=== PATIENT | female | born 1945 | race Caucasian/White ===

== ENCOUNTER → 2016-02-22 | Outpatient (REF) | payer OTHER ==
[~2016-02-22] MED LIST: /WARF25TA OR; ACET65TA OR; ALLEVIATE PO; AMIT10TA2 OR; AMIT25TA2 OR; CINAMMON PO; CO Q 10 PO; COUM2.5T11 PO; GREEN TEA EXTRACT PO; METOPROLOL PO; MULTCAP PO; MULTIVIT PO; NASA0.057; OCEA0.654; OMEGA Q PLUS PO; PERC7.5T8 OR; PERCOCET PO; PRAV40TA OR; PRAVASTATIN PO; TOPR25TA OR; TRAM50TA2 OR; TRIGOSAMINE PO; TYLE167L PO; ULTR50TA PO; VITACAP31 PO; VITAL PO; VITAMIN B COMPLE1 OR
[2016-02-22 14:42] LABS: ALBUMIN 3.7 GM/DL (3.2-5.2); ALBUMIN/GLOBULIN RATIO 1.12 (1.00-1.93); ALKALINE PHOSPHATASE 103 U/L (45-117); ALT/SGPT 39 U/L (12-78); ANION GAP 10 MEQ/L (8-16); AST/SGOT 31 U/L (15-37); BILIRUBIN,DIRECT 0.1 MG/DL (0.0-0.2); BILIRUBIN,TOTAL 0.4 MG/DL (0.2-1.0); BLOOD UREA NITROGEN 11 MG/DL (7-18); CALCIUM LEVEL 9.2 MG/DL (8.8-10.2); CARBON DIOXIDE LEVEL 26 MEQ/L (21-32); CHLORIDE LEVEL 106 MEQ/L (98-107); GLOMERULAR FILTRATION RATE > 60.0 (>39); GLUCOSE, FASTING 122 MG/DL (83-110); POTASSIUM SERUM 4.1 MEQ/L (3.5-5.1); SODIUM LEVEL 142 MEQ/L (136-145)
== END ==
LOC: M LABDRAW1 13:16
PROVIDERS: ATTEND Physician Assistant
DX: M17.0 Bilateral primary osteoarthritis of knee (principal)

== ENCOUNTER → 2017-06-11 | Outpatient (REF) | payer MEDICARE, OTHER ==
[2017-06-13 18:45] LABS: VITAMIN B12 LEVEL 464 PG/ML (247-911)
== END ==
LOC: M LAB REF 06-12 16:37
DX: Z01.89 Encounter for other specified special examinations (principal); D51.9 Vitamin B12 deficiency anemia, unspecified
CPT/HCPCS: 82607

== ENCOUNTER → 2018-09-25 | Outpatient (REF) | payer MEDICARE, OTHER ==
[~2018-09-25] MED LIST changes: -/WARF25TA OR; +COUM1TAB18 OR; -COUM2.5T11 PO; +COUM2.5T17 PO; +METO-1 OR; +NASA0.0517; -NASA0.057; -TOPR25TA OR
[2018-09-25 20:34] LABS: BASO # 0.1 10^3/uL (0.0-0.2); BASO % 0.6 % (0.0-1.0); EOS # 0.3 10^3/uL (0.0-0.50); EOS % 2.4 % (0.0-3.0); HEMATOCRIT 43.4 % (36.0-47.0); HEMOGLOBIN 14.3 g/dl (12.0-15.5); LYMPH # 2.1 10^3/uL (1.5-4.5); LYMPH % 20.3 % (24.0-44.0); MEAN CORPUSCULAR HEMOGLOBIN 33.3 pg (27.0-33.0); MEAN CORPUSCULAR HGB CONC 32.9 g/dl (32.0-36.5); MEAN CORPUSCULAR VOLUME 100.9 fl (80.0-96.0); MONO # 1.1 10^3/uL (0.0-0.8); MONO % 10.6 % (0.0-5.0); NEUTROPHILS # 6.9 10^3/uL (1.8-7.7); NEUTROPHILS % 65.6 % (36.0-66.0); PLATELET COUNT, AUTOMATED 234 10^3/uL (150-450); WHITE BLOOD COUNT 10.5 10^3/uL (4.0-10.0)
[2018-09-25 20:41] LABS: ALT/SGPT 26 U/L (12-78); BILIRUBIN,TOTAL 0.3 MG/DL (0.2-1.0); BLOOD UREA NITROGEN 14 MG/DL (7-18); C REACTIVE PROTEIN QUANTITATIV < 0.30 MG/DL (0.00-0.30); CALCIUM LEVEL 9.4 MG/DL (8.8-10.2); CARBON DIOXIDE LEVEL 31 MEQ/L (21-32); CHLORIDE LEVEL 108 MEQ/L (98-107); CREATININE FOR GFR 0.97 MG/DL (0.55-1.30); GLOMERULAR FILTRATION RATE 59.9 (>39); GLUCOSE, FASTING 94 MG/DL (70-100); SODIUM LEVEL 142 MEQ/L (136-145); TOTAL PROTEIN 7.4 GM/DL (6.4-8.2)
[2018-09-25 20:55] LABS: ERYTHROCYTE SEDIMENTATION RATE 7 mm/hr (0-30)
== END ==
LOC: M LABDRWAD 19:27
PROVIDERS: ATTEND Physician Assistant
DX: R53.83 Other fatigue (principal)

== ENCOUNTER → 2018-11-04 | Outpatient (REF) | payer MEDICARE, OTHER ==
[2018-11-04 15:18] LABS: RED BLOOD COUNT 4.15 10^6/uL (4.00-5.40); WHITE BLOOD COUNT 9.9 10^3/uL (4.0-10.0)
[2018-11-04 15:19] LABS: BASO % 0.4 % (0.0-1.0); EOS # 0.2 10^3/uL (0.0-0.5); EOS % 1.5 % (0.0-3.0); HEMATOCRIT 40.7 % (36.0-47.0); HEMOGLOBIN 13.6 g/dl (12.0-15.5); LYMPH # 2.2 10^3/uL (1.5-5.0); LYMPH % 22.3 % (24.0-44.0); MEAN CORPUSCULAR HEMOGLOBIN 32.8 pg (27.0-33.0); MEAN CORPUSCULAR HGB CONC 33.4 g/dl (32.0-36.5); MEAN CORPUSCULAR VOLUME 98.1 fl (80.0-96.0); MONO # 1.1 10^3/uL (0.0-0.8); MONO % 11.2 % (0.0-5.0); NEUTROPHILS # 6.4 10^3/uL (1.5-8.5); NEUTROPHILS % 64.1 % (36.0-66.0); PLATELET COUNT, AUTOMATED 238 10^3/uL (150-450)
[2018-11-04 15:41] LABS: ALT/SGPT 30 U/L (12-78); BILIRUBIN,TOTAL 0.5 MG/DL (0.2-1.0); BLOOD UREA NITROGEN 11 MG/DL (7-18); CALCIUM LEVEL 9.3 MG/DL (8.8-10.2); CARBON DIOXIDE LEVEL 28 MEQ/L (21-32); CHLORIDE LEVEL 107 MEQ/L (98-107); CREATININE FOR GFR 0.76 MG/DL (0.55-1.30); GLOMERULAR FILTRATION RATE > 60.0 (>39); GLUCOSE, FASTING 79 MG/DL (70-100); POTASSIUM SERUM 4.1 MEQ/L (3.5-5.1); SODIUM LEVEL 143 MEQ/L (136-145); TOTAL PROTEIN 7.1 GM/DL (6.4-8.2)
== END ==
LOC: M LABDRWAD 14:20
PROVIDERS: ATTEND Physician Assistant
DX: K92.1 Melena (principal); R23.3 Spontaneous ecchymoses

== ENCOUNTER → 2018-11-05 | Outpatient (REF) | payer MEDICARE, OTHER | LOC: M LAB REF 13:10 | PROVIDERS: ATTEND Physician Assistant | DX: K92.1 Melena (principal); R23.3 Spontaneous ecchymoses ==

== ENCOUNTER 2021-12-22 12:10 | Inpatient (IN) | payer MEDICARE, OTHER ==
[~2021-12-22] VITALS: Ht 157.5 cm; Wt 88.6 kg
[2021-12-22 13:19] LABS: BASO # 0.1 10^3/uL (0.0-0.2); BASO % 0.6 % (0.0-1.0); EOS # 0.1 10^3/uL (0.0-0.5); EOS % 1.2 % (0.0-3.0); HEMATOCRIT 38.1 % (36.0-47.0); LYMPH # 2.1 10^3/uL (1.5-5.0); LYMPH % 19.6 % (24.0-44.0); MEAN CORPUSCULAR HEMOGLOBIN 33.5 pg (27.0-33.0); MEAN CORPUSCULAR HGB CONC 34.1 g/dl (32.0-36.5); MEAN CORPUSCULAR VOLUME 98.2 fl (80.0-96.0); MONO # 1.4 10^3/uL (0.0-0.8); MONO % 13.4 % (2.0-8.0); NEUTROPHILS # 6.9 10^3/uL (1.5-8.5); NEUTROPHILS % 64.7 % (36.0-66.0); PLATELET COUNT, AUTOMATED 299 10^3/uL (150-450); RED BLOOD COUNT 3.88 10^6/uL (4.00-5.40); WHITE BLOOD COUNT 10.7 10^3/uL (4.0-10.0)
[2021-12-22 13:32] LABS: INR 0.96
[2021-12-22 13:33] LABS: PARTIAL THROMBOPLASTIN TIME 28.5 SECONDS (24.8-34.2)
[2021-12-22 13:55] LABS: BLOOD UREA NITROGEN 13 MG/DL (7-18); CALCIUM LEVEL 9.6 MG/DL (8.8-10.2); CARBON DIOXIDE LEVEL 27 MEQ/L (21-32); CHLORIDE LEVEL 105 MEQ/L (98-107); CREATININE FOR GFR 0.72 MG/DL (0.55-1.30); GLOMERULAR FILTRATION RATE > 60.0 (>39); GLUCOSE, FASTING 102 MG/DL (70-100); POTASSIUM SERUM 3.6 MEQ/L (3.5-5.1); SODIUM LEVEL 138 MEQ/L (136-145)
[2021-12-22 14:04] LABS: CK-MB VALUE MASS 1.1 NG/ML (<3.6); MB/CK RELATIVE INDEX 0.88 (< OR =4)
[2021-12-22] MEDS ORDERED: ISOVUE-370 76% 100ML VIAL As Ordered ONE (14:10)
[2021-12-22] MEDS ORDERED: ASPIRIN 81 MG CHEW TABLET PO ONE (14:55)
[2021-12-22] MEDS ORDERED: ATORVASTATIN 20 MG TAB PO SCH (15:30)
[2021-12-22] MEDS ORDERED: SYNT50TA PO (15:48)
[2021-12-22] MEDS ORDERED: PRAV80TA2 PO (15:48)
[2021-12-22] MEDS ORDERED: METO1TAB87 PO (15:48)
[2021-12-22] MEDS ORDERED: FLON1SPR NARES (15:48)
[2021-12-22] MEDS: ACETAMINOPHEN TAB 650MG DOSE (2X325MG) PO PRN ×2 (16:03→21:50)
[2021-12-22] MEDS ORDERED: ADVI1CAP2 PO (16:11)
[2021-12-22] MEDS ORDERED: B-12100010 PO (16:11)
[2021-12-22] MEDS ORDERED: IBUP-1857 PO (16:11)
[2021-12-22] MEDS ORDERED: CO Q10CA PO (16:11)
[2021-12-22] MEDS ORDERED: NOXI1TAB PO (16:11)
[2021-12-22] MEDS ORDERED: VITATAB73 PO (16:11)
[2021-12-22] MEDS ORDERED: [UNRECOGNIZED DRUG - CODE] PO (16:13)
[2021-12-22] MEDS ORDERED: DIPH50CA PO (16:13)
[2021-12-22] MEDS ORDERED: HOME MED LIST COMPLETE! XX SCH (16:15)
[2021-12-22] MEDS ORDERED: LORazepam 2 MG/ML VIAL IV STA (17:14)
[2021-12-22] MEDS ORDERED: PRAVASTATIN 20 MG TAB PO SCH (18:00)
[2021-12-22 19:36] LABS: RSV AMPLIFICATION NEGATIVE (NEGATIVE)
[2021-12-22 20:49] LABS: CHOLESTEROL LEVEL 165 MG/DL (<200); CHOLESTEROL RISK RATIO 2.894 (<5); HDL CHOLESTEROL 57 MG/DL (>40); LDL CHOLESTEROL 68 MG/DL (<100); NON-HDL-C 108 MG/DL; TRIGLYCERIDES LEVEL 201 MG/DL (<150)
[2021-12-22 20:58] LABS: HEMOGLOBIN A1c 5.6 %
[2021-12-22] MEDS ORDERED: diphenhydrAMINE 50MG CAP PO SCH (21:00)
[2021-12-22 21:20] VITALS: BP 177/98
[2021-12-22 21:49] VITALS: BP 177/98
[2021-12-22] MEDS: METOPROLOL TART 25 MG TABLET PO SCH (21:49)
[2021-12-23 01:00] VITALS: BP 176/88
[2021-12-23 05:19] VITALS: BP 171/92
[2021-12-23] MEDS ORDERED: LEVOTHYROXINE 50MCG TABLET (0.05MG) PO SCH (06:00)
[2021-12-23 07:08] LABS: HEMATOCRIT 36.8 % (36.0-47.0); HEMOGLOBIN 12.4 g/dl (12.0-15.5); MEAN CORPUSCULAR HEMOGLOBIN 33.7 pg (27.0-33.0); MEAN CORPUSCULAR HGB CONC 33.7 g/dl (32.0-36.5); PLATELET COUNT, AUTOMATED 281 10^3/uL (150-450); RED BLOOD COUNT 3.68 10^6/uL (4.00-5.40); WHITE BLOOD COUNT 9.7 10^3/uL (4.0-10.0)
[2021-12-23 07:46] LABS: BLOOD UREA NITROGEN 10 MG/DL (7-18); CALCIUM LEVEL 9.2 MG/DL (8.8-10.2); CARBON DIOXIDE LEVEL 29 MEQ/L (21-32); CHLORIDE LEVEL 106 MEQ/L (98-107); CREATININE FOR GFR 0.58 MG/DL (0.55-1.30); GLOMERULAR FILTRATION RATE > 60.0 (>39); GLUCOSE, FASTING 85 MG/DL (70-100); POTASSIUM SERUM 3.8 MEQ/L (3.5-5.1); SODIUM LEVEL 140 MEQ/L (136-145)
[2021-12-23 08:00] VITALS: BP 163/103
[2021-12-23] MEDS: METOPROLOL TART 25 MG TABLET PO SCH (08:48)
[2021-12-23] MEDS ORDERED: ASPIRIN 81MG ENTERIC TABLET PO SCH (09:00)
[2021-12-23] MEDS ORDERED: FLUTICASONE PROP 0.05% NASAL SPRAY 16 GM (FLONASE) NARES SCH (09:00)
[2021-12-23 12:00] LABS: D-DIMER QUANT 939.84 ng/ml (<500)
[2021-12-23 12:17] LABS: C REACTIVE PROTEIN QUANTITATIV < 0.30 MG/DL (0.00-0.30); FERRITIN 167 NG/ML (8-252); LDH LACTATE DEHYDROGENASE 213 U/L (84-246)
[2021-12-23] MEDS ORDERED: ASPI81TAEC PO (13:48)
[2021-12-23] MEDS ORDERED: REMD100V IV (13:48)
[2021-12-23] MEDS ORDERED: LOVE1INJ SC (13:55)
[2021-12-23 14:00] VITALS: BP 160/79
[2021-12-23] MEDS ORDERED: REMDESIVIR 200 MG in NS 250 ML IV ONE (14:00)
[2021-12-23 14:38] LABS: ALBUMIN 3.6 GM/DL (3.2-5.2); ALT/SGPT 27 U/L (12-78); BILIRUBIN,DIRECT 0.2 MG/DL (0.0-0.2); BILIRUBIN,TOTAL 0.8 MG/DL (0.2-1.0); TOTAL PROTEIN 6.7 GM/DL (6.4-8.2)
[2021-12-23] MEDS ORDERED: SODIUM CHLORIDE 0.9% INJ 10 ML SYR IV ONE (16:00)
[2021-12-24] MEDS ORDERED: REMDESIVIR 100 MG in NS 250 ML IV SCH (14:00)
[2021-12-24] MEDS ORDERED: SODIUM CHLORIDE 0.9% INJ 10 ML SYR IV SCH (15:00)
== END 2021-12-23 17:09 | DRG 64 ==
LOC: M ED 13:15 → M MSPAV 15:27 → M ED INP 15:27 → M MSPAV 21:19
PROVIDERS: ADMIT Internal Medicine; ATTEND Internal Medicine
PROC: B246ZZZ Ultrasonography of Right and Left Heart (ICD-10-PCS; principal; 2021-12-23)
PROC: XW033E5 Introduction of Remdesivir Anti-infective into Peripheral Vein, Percutaneous Approach, New Technology Group 5 (ICD-10-PCS; 2021-12-23)
DX: I63.89 Other cerebral infarction (principal); U07.1 COVID-19; I10 Essential (primary) hypertension; E78.5 Hyperlipidemia, unspecified; Z87.891 Personal history of nicotine dependence; M19.90 Unspecified osteoarthritis, unspecified site; G89.29 Other chronic pain; F32.A Depression, unspecified; F41.9 Anxiety disorder, unspecified; R47.81 Slurred speech; R29.810 Facial weakness; R53.1 Weakness; Z96.642 Presence of left artificial hip joint; Z96.651 Presence of right artificial knee joint; Z90.49 Acquired absence of other specified parts of digestive tract; R26.89 Other abnormalities of gait and mobility; Z79.890 Hormone replacement therapy; Z79.899 Other long term (current) drug therapy; Z88.5 Allergy status to narcotic agent; Z88.8 Allergy status to other drugs, medicaments and biological substances

== ENCOUNTER 2021-12-23 11:25 | Inpatient (IN) | payer MEDICARE, OTHER ==
[~2021-12-23] VITALS: Ht 157.5 cm; Wt 88.6 kg
[~2021-12-23 11:25] MED LIST changes: +ADVI1CAP2 PO; +B-12100010 PO; +CO Q10CA PO; +DIPH50CA PO; +FLON1SPR NARES; +IBUP-1857 PO; +METO1TAB87 PO; +NOXI1TAB PO; +PRAV80TA2 PO; +SYNT50TA PO; +VITATAB73 PO; +[UNRECOGNIZED DRUG - CODE] PO
[2021-12-23] MEDS ORDERED: ASPI81TAEC PO (13:48)
[2021-12-23] MEDS ORDERED: REMD100V IV (13:48)
[2021-12-23] MEDS ORDERED: LOVE1INJ SC (13:55)
[2021-12-23] MEDS ORDERED: SODIUM CHLORIDE 0.9% INJ 10 ML SYR IV SCH (17:00)
[2021-12-23 17:30] VITALS: BP 142/78
[2021-12-23] MEDS ORDERED: traZODone 25MG PER 1/2 TABLET PO PRN (17:30)
[2021-12-23] MEDS ORDERED: ONDANSETRON 4MG TAB PO PRN (17:30)
[2021-12-23] MEDS ORDERED: MIRALAX *UNIT DOSE* 17GM PACKET PO PRN (17:30)
[2021-12-23] MEDS ORDERED: ACETAMINOPHEN TAB 650MG DOSE (2X325MG) PO PRN (17:30)
[2021-12-23] MEDS: **hydrALAZINE** 50 MG TAB PO SCH (18:28)
[2021-12-23 20:00] VITALS: BP 140/74
[2021-12-23] MEDS: SENNA 8.6 MG TAB (SENOKOT) PO SCH (20:58)
[2021-12-23] MEDS: DOCUSATE SODIUM 100MG CAPSULE PO SCH (20:58)
[2021-12-23] MEDS: REMEDY PHYTOPLEX Z-GUARD PASTE 113GM TUBE (FROM STOREROOM PRODUCT) TOP SCH (20:59)
[2021-12-23] MEDS: PRAVASTATIN 20 MG TAB PO SCH (20:59)
[2021-12-23] MEDS: METOPROLOL TART 25 MG TABLET PO SCH (20:59)
[2021-12-24] MEDS: **hydrALAZINE** 50 MG TAB PO SCH ×2 (00:15→05:21)
[2021-12-24] MEDS: LEVOTHYROXINE 50MCG TABLET (0.05MG) PO SCH (05:21)
[2021-12-24 06:00] VITALS: BP 190/110
[2021-12-24] MEDS: METOPROLOL TART 25 MG TABLET PO SCH ×2 (06:50→21:09)
[2021-12-24] MEDS ORDERED: amLODIPine 5 MG TAB PO ONE (07:00)
[2021-12-24 07:12] LABS: BASO # 0.1 10^3/uL (0.0-0.2); BASO % 0.6 % (0.0-1.0); EOS # 0.2 10^3/uL (0.0-0.5); EOS % 1.9 % (0.0-3.0); HEMATOCRIT 37.4 % (36.0-47.0); HEMOGLOBIN 12.9 g/dl (12.0-15.5); LYMPH # 2.1 10^3/uL (1.5-5.0); LYMPH % 20.2 % (24.0-44.0); MEAN CORPUSCULAR HEMOGLOBIN 33.6 pg (27.0-33.0); MEAN CORPUSCULAR HGB CONC 34.5 g/dl (32.0-36.5); MEAN CORPUSCULAR VOLUME 97.4 fl (80.0-96.0); MONO % 9.4 % (2.0-8.0); NEUTROPHILS % 67.3 % (36.0-66.0); PLATELET COUNT, AUTOMATED 271 10^3/uL (150-450); RED BLOOD COUNT 3.84 10^6/uL (4.00-5.40); WHITE BLOOD COUNT 10.4 10^3/uL (4.0-10.0)
[2021-12-24 07:38] LABS: BLOOD UREA NITROGEN 12 MG/DL (7-18); CALCIUM LEVEL 9.4 MG/DL (8.8-10.2); CARBON DIOXIDE LEVEL 27 MEQ/L (21-32); CHLORIDE LEVEL 106 MEQ/L (98-107); CREATININE FOR GFR 0.62 MG/DL (0.55-1.30); GLOMERULAR FILTRATION RATE > 60.0 (>39); GLUCOSE, FASTING 96 MG/DL (70-100); POTASSIUM SERUM 3.8 MEQ/L (3.5-5.1); SODIUM LEVEL 143 MEQ/L (136-145)
[2021-12-24 07:39] LABS: ALBUMIN 3.7 GM/DL (3.2-5.2); ALT/SGPT 27 U/L (12-78); BILIRUBIN,DIRECT 0.2 MG/DL (0.0-0.2); BILIRUBIN,TOTAL 0.5 MG/DL (0.2-1.0); TOTAL PROTEIN 6.8 GM/DL (6.4-8.2)
[2021-12-24 07:42] VITALS: BP 160/82
[2021-12-24] MEDS: PANTOPRAZOLE 40MG TAB (PROTONIX) PO SCH (07:50)
[2021-12-24] MEDS: CYANOCOBALAMIN 500 MCG TAB PO SCH (07:50)
[2021-12-24] MEDS: ASPIRIN 81MG ENTERIC TABLET PO SCH (07:50)
[2021-12-24] MEDS: REMEDY PHYTOPLEX Z-GUARD PASTE 113GM TUBE (FROM STOREROOM PRODUCT) TOP SCH ×3 (07:51→21:00)
[2021-12-24] MEDS: ENOXAPARIN 40MG/0.4ML SYRINGE (J1650 PER 10MG) SC SCH (07:51)
[2021-12-24] MEDS: FLUTICASONE PROP 0.05% NASAL SPRAY 16 GM (FLONASE) NARES SCH ×2 (07:51→21:00)
[2021-12-24] MEDS: VITAMIN D 1,000 INTERNATIONAL UNITS TABLET PO SCH (07:51)
[2021-12-24] MEDS: DOCUSATE SODIUM 100MG CAPSULE PO SCH ×2 (07:51→21:08)
[2021-12-24] MEDS: NEPHRO-VIT TAB (NEPHROCAPS) PO SCH (07:51)
[2021-12-24 08:42] VITALS: BP 152/82
[2021-12-24] MEDS ORDERED: amLODIPine 5 MG TAB PO SCH (09:00)
[2021-12-24] MEDS: LIDOCAINE 5% (LIDODERM) PATCH TD SCH (12:05)
[2021-12-24 14:00] VITALS: BP 140/80
[2021-12-24] MEDS ORDERED: diphenhydrAMINE 25MG CAP PO PRN (14:40)
[2021-12-24] MEDS: ACETAMINOPHEN 500 MG TAB PO SCH ×2 (15:26→21:09)
[2021-12-24] MEDS: REMDESIVIR 100 MG in NS 250 ML IV SCH (15:27)
[2021-12-24] MEDS: SODIUM CHLORIDE 0.9% INJ 10 ML SYR IV SCH (15:29)
[2021-12-24 20:00] VITALS: BP 142/90
[2021-12-24] MEDS: SENNA 8.6 MG TAB (SENOKOT) PO SCH (21:08)
[2021-12-24] MEDS: IBUPROFEN 400MG TAB PO SCH (21:08)
[2021-12-24] MEDS: DULoxetine 20 MG CAP (CYMBALTA) PO SCH (21:09)
[2021-12-24] MEDS: PRAVASTATIN 20 MG TAB PO SCH (21:09)
[2021-12-24] MEDS: DICLOFENAC EPOLAMINE 1.3 % PATCH TOP SCH (21:10)
[2021-12-24] MEDS: diphenhydrAMINE 25MG CAP PO PRN (22:55)
[2021-12-25] MEDS: LEVOTHYROXINE 50MCG TABLET (0.05MG) PO SCH (05:43)
[2021-12-25 06:00] VITALS: BP 180/112
[2021-12-25] MEDS: METOPROLOL TART 25 MG TABLET PO SCH ×2 (06:04→21:21)
[2021-12-25 07:11] VITALS: BP 170/94
[2021-12-25 08:19] VITALS: BP 140/80
[2021-12-25] MEDS: ENOXAPARIN 40MG/0.4ML SYRINGE (J1650 PER 10MG) SC SCH (08:20)
[2021-12-25] MEDS: CYANOCOBALAMIN 500 MCG TAB PO SCH (08:20)
[2021-12-25] MEDS: VITAMIN D 1,000 INTERNATIONAL UNITS TABLET PO SCH (08:20)
[2021-12-25] MEDS: NEPHRO-VIT TAB (NEPHROCAPS) PO SCH (08:20)
[2021-12-25] MEDS: ACETAMINOPHEN 500 MG TAB PO SCH ×3 (08:20→21:19)
[2021-12-25] MEDS: ASPIRIN 81MG ENTERIC TABLET PO SCH (08:20)
[2021-12-25] MEDS: PANTOPRAZOLE 40MG TAB (PROTONIX) PO SCH (08:20)
[2021-12-25] MEDS: LIDOCAINE 5% (LIDODERM) PATCH TD SCH (08:21)
[2021-12-25] MEDS: DICLOFENAC EPOLAMINE 1.3 % PATCH TOP SCH ×2 (08:21→21:18)
[2021-12-25] MEDS: FLUTICASONE PROP 0.05% NASAL SPRAY 16 GM (FLONASE) NARES SCH ×2 (08:21→21:00)
[2021-12-25] MEDS: DOCUSATE SODIUM 100MG CAPSULE PO SCH ×2 (08:21→21:00)
[2021-12-25] MEDS: REMEDY PHYTOPLEX Z-GUARD PASTE 113GM TUBE (FROM STOREROOM PRODUCT) TOP SCH ×3 (08:21→21:00)
[2021-12-25 14:00] VITALS: BP_SYST 137; BP_SYST 160; BP_DIAS 65; BP_DIAS 82
[2021-12-25] MEDS: REMDESIVIR 100 MG in NS 250 ML IV SCH (16:11)
[2021-12-25] MEDS: SODIUM CHLORIDE 0.9% INJ 10 ML SYR IV SCH (16:12)
[2021-12-25 17:15] VITALS: BP 170/90
[2021-12-25] MEDS: **hydrALAZINE** 50 MG TAB PO SCH ×2 (17:23→23:41)
[2021-12-25 20:00] VITALS: BP 160/84
[2021-12-25] MEDS: SENNA 8.6 MG TAB (SENOKOT) PO SCH (21:00)
[2021-12-25] MEDS: DULoxetine 20 MG CAP (CYMBALTA) PO SCH (21:19)
[2021-12-25] MEDS: IBUPROFEN 400MG TAB PO SCH (21:20)
[2021-12-25] MEDS: PRAVASTATIN 20 MG TAB PO SCH (21:20)
[2021-12-25] MEDS: diphenhydrAMINE 25MG CAP PO PRN (21:36)
[2021-12-26] MEDS: **hydrALAZINE** 50 MG TAB PO SCH ×3 (05:53→17:22)
[2021-12-26] MEDS: LEVOTHYROXINE 50MCG TABLET (0.05MG) PO SCH (05:53)
[2021-12-26 06:00] VITALS: BP 166/86
[2021-12-26] MEDS: ASPIRIN 81MG ENTERIC TABLET PO SCH (07:55)
[2021-12-26] MEDS: DOCUSATE SODIUM 100MG CAPSULE PO SCH ×2 (07:56→21:00)
[2021-12-26] MEDS: CYANOCOBALAMIN 500 MCG TAB PO SCH (07:56)
[2021-12-26] MEDS: ACETAMINOPHEN 500 MG TAB PO SCH ×3 (07:57→21:16)
[2021-12-26] MEDS: PANTOPRAZOLE 40MG TAB (PROTONIX) PO SCH (08:03)
[2021-12-26] MEDS: NEPHRO-VIT TAB (NEPHROCAPS) PO SCH (08:03)
[2021-12-26] MEDS: METOPROLOL TART 25 MG TABLET PO SCH ×2 (08:04→21:19)
[2021-12-26] MEDS: VITAMIN D 1,000 INTERNATIONAL UNITS TABLET PO SCH (08:04)
[2021-12-26] MEDS: FLUTICASONE PROP 0.05% NASAL SPRAY 16 GM (FLONASE) NARES SCH ×2 (09:00→21:00)
[2021-12-26] MEDS: REMEDY PHYTOPLEX Z-GUARD PASTE 113GM TUBE (FROM STOREROOM PRODUCT) TOP SCH ×3 (09:00→21:00)
[2021-12-26] MEDS: ENOXAPARIN 40MG/0.4ML SYRINGE (J1650 PER 10MG) SC SCH (10:01)
[2021-12-26] MEDS: DICLOFENAC EPOLAMINE 1.3 % PATCH TOP SCH ×2 (10:02→21:10)
[2021-12-26] MEDS: LIDOCAINE 5% (LIDODERM) PATCH TD SCH (10:03)
[2021-12-26 10:38] LABS: BASO # 0.1 10^3/uL (0.0-0.2); BASO % 0.5 % (0.0-1.0); EOS # 0.1 10^3/uL (0.0-0.5); HEMATOCRIT 36.4 % (36.0-47.0); HEMOGLOBIN 12.2 g/dl (12.0-15.5); LYMPH # 1.7 10^3/uL (1.5-5.0); LYMPH % 16.3 % (24.0-44.0); MEAN CORPUSCULAR HEMOGLOBIN 33.2 pg (27.0-33.0); MEAN CORPUSCULAR HGB CONC 33.5 g/dl (32.0-36.5); MEAN CORPUSCULAR VOLUME 98.9 fl (80.0-96.0); MONO # 1.3 10^3/uL (0.0-0.8); MONO % 12.1 % (2.0-8.0); NEUTROPHILS # 7.4 10^3/uL (1.5-8.5); NEUTROPHILS % 69.6 % (36.0-66.0); PLATELET COUNT, AUTOMATED 275 10^3/uL (150-450); RED BLOOD COUNT 3.68 10^6/uL (4.00-5.40); WHITE BLOOD COUNT 10.6 10^3/uL (4.0-10.0)
[2021-12-26 12:03] VITALS: BP 148/80
[2021-12-26 12:35] LABS: BLOOD UREA NITROGEN 14 MG/DL (7-18); CARBON DIOXIDE LEVEL 26 MEQ/L (21-32); CHLORIDE LEVEL 103 MEQ/L (98-107); CREATININE FOR GFR 0.67 MG/DL (0.55-1.30); GLOMERULAR FILTRATION RATE > 60.0 (>39); GLUCOSE, FASTING 116 MG/DL (70-100); POTASSIUM SERUM 3.7 MEQ/L (3.5-5.1); SODIUM LEVEL 137 MEQ/L (136-145)
[2021-12-26 14:00] VITALS: BP 128/82
[2021-12-26] MEDS: REMDESIVIR 100 MG in NS 250 ML IV SCH (16:28)
[2021-12-26] MEDS: SODIUM CHLORIDE 0.9% INJ 10 ML SYR IV SCH (16:30)
[2021-12-26 17:19] VITALS: BP 120/78
[2021-12-26 20:00] VITALS: BP 154/88
[2021-12-26] MEDS: SENNA 8.6 MG TAB (SENOKOT) PO SCH (21:00)
[2021-12-26] MEDS: diphenhydrAMINE 25MG CAP PO PRN (21:13)
[2021-12-26] MEDS: IBUPROFEN 400MG TAB PO SCH (21:13)
[2021-12-26] MEDS: DULoxetine 20 MG CAP (CYMBALTA) PO SCH (21:14)
[2021-12-26] MEDS: PRAVASTATIN 20 MG TAB PO SCH (21:20)
[2021-12-27] MEDS: **hydrALAZINE** 50 MG TAB PO SCH ×5 (00:38→23:43)
[2021-12-27] MEDS: LEVOTHYROXINE 50MCG TABLET (0.05MG) PO SCH (05:56)
[2021-12-27 06:00] VITALS: BP 128/86
[2021-12-27] MEDS: CYANOCOBALAMIN 500 MCG TAB PO SCH (07:38)
[2021-12-27] MEDS: ENOXAPARIN 40MG/0.4ML SYRINGE (J1650 PER 10MG) SC SCH (07:38)
[2021-12-27] MEDS: PANTOPRAZOLE 40MG TAB (PROTONIX) PO SCH (07:44)
[2021-12-27] MEDS: NEPHRO-VIT TAB (NEPHROCAPS) PO SCH (07:44)
[2021-12-27] MEDS: METOPROLOL TART 25 MG TABLET PO SCH ×2 (07:44→20:06)
[2021-12-27] MEDS: DOCUSATE SODIUM 100MG CAPSULE PO SCH ×2 (07:44→20:06)
[2021-12-27] MEDS: VITAMIN D 1,000 INTERNATIONAL UNITS TABLET PO SCH (07:45)
[2021-12-27] MEDS: ASPIRIN 81MG ENTERIC TABLET PO SCH (07:45)
[2021-12-27] MEDS: ACETAMINOPHEN 500 MG TAB PO SCH ×3 (07:46→20:08)
[2021-12-27] MEDS: REMEDY PHYTOPLEX Z-GUARD PASTE 113GM TUBE (FROM STOREROOM PRODUCT) TOP SCH ×3 (07:47→19:32)
[2021-12-27] MEDS: LIDOCAINE 5% (LIDODERM) PATCH TD SCH (07:48)
[2021-12-27] MEDS: FLUTICASONE PROP 0.05% NASAL SPRAY 16 GM (FLONASE) NARES SCH ×2 (07:49→20:08)
[2021-12-27] MEDS: DICLOFENAC EPOLAMINE 1.3 % PATCH TOP SCH ×2 (07:49→20:08)
[2021-12-27 14:00] VITALS: BP 122/74
[2021-12-27] MEDS: REMDESIVIR 100 MG in NS 250 ML IV SCH (15:55)
[2021-12-27] MEDS: SODIUM CHLORIDE 0.9% INJ 10 ML SYR IV SCH (16:01)
[2021-12-27 18:13] VITALS: BP 120/70
[2021-12-27 20:00] VITALS: BP 124/70
[2021-12-27] MEDS: DULoxetine 20 MG CAP (CYMBALTA) PO SCH (20:06)
[2021-12-27] MEDS: PRAVASTATIN 20 MG TAB PO SCH (20:06)
[2021-12-27] MEDS: IBUPROFEN 400MG TAB PO SCH (20:07)
[2021-12-27] MEDS: SENNA 8.6 MG TAB (SENOKOT) PO SCH (20:07)
[2021-12-27] MEDS: diphenhydrAMINE 25MG CAP PO PRN (23:43)
[2021-12-28] MEDS: **hydrALAZINE** 50 MG TAB PO SCH ×3 (05:33→20:33)
[2021-12-28] MEDS: LEVOTHYROXINE 50MCG TABLET (0.05MG) PO SCH (05:33)
[2021-12-28 06:00] VITALS: BP 144/82
[2021-12-28 06:39] LABS: BASO # 0.1 10^3/uL (0.0-0.2); BASO % 0.7 % (0.0-1.0); EOS # 0.2 10^3/uL (0.0-0.5); EOS % 1.6 % (0.0-3.0); HEMATOCRIT 38.3 % (36.0-47.0); HEMOGLOBIN 12.5 g/dl (12.0-15.5); LYMPH # 1.6 10^3/uL (1.5-5.0); LYMPH % 16.3 % (24.0-44.0); MEAN CORPUSCULAR HEMOGLOBIN 32.7 pg (27.0-33.0); MEAN CORPUSCULAR HGB CONC 32.6 g/dl (32.0-36.5); MEAN CORPUSCULAR VOLUME 100.3 fl (80.0-96.0); MONO % 10.7 % (2.0-8.0); NEUTROPHILS # 6.8 10^3/uL (1.5-8.5); NEUTROPHILS % 70.1 % (36.0-66.0); PLATELET COUNT, AUTOMATED 275 10^3/uL (150-450); RED BLOOD COUNT 3.82 10^6/uL (4.00-5.40); WHITE BLOOD COUNT 9.7 10^3/uL (4.0-10.0)
[2021-12-28 07:11] LABS: BLOOD UREA NITROGEN 15 MG/DL (7-18); CARBON DIOXIDE LEVEL 26 MEQ/L (21-32); CHLORIDE LEVEL 105 MEQ/L (98-107); CREATININE FOR GFR 0.57 MG/DL (0.55-1.30); GLOMERULAR FILTRATION RATE > 60.0 (>39); GLUCOSE, FASTING 93 MG/DL (70-100); POTASSIUM SERUM 3.7 MEQ/L (3.5-5.1); SODIUM LEVEL 139 MEQ/L (136-145)
[2021-12-28] MEDS: ASPIRIN 81MG ENTERIC TABLET PO SCH (08:40)
[2021-12-28] MEDS: DOCUSATE SODIUM 100MG CAPSULE PO SCH ×2 (08:40→20:35)
[2021-12-28] MEDS: CYANOCOBALAMIN 500 MCG TAB PO SCH (08:41)
[2021-12-28] MEDS: METOPROLOL TART 25 MG TABLET PO SCH ×2 (08:41→20:33)
[2021-12-28] MEDS: PANTOPRAZOLE 40MG TAB (PROTONIX) PO SCH (08:42)
[2021-12-28] MEDS: VITAMIN D 1,000 INTERNATIONAL UNITS TABLET PO SCH (08:42)
[2021-12-28] MEDS: ACETAMINOPHEN 500 MG TAB PO SCH ×3 (08:42→20:34)
[2021-12-28] MEDS: NEPHRO-VIT TAB (NEPHROCAPS) PO SCH (08:42)
[2021-12-28] MEDS: FLUTICASONE PROP 0.05% NASAL SPRAY 16 GM (FLONASE) NARES SCH ×2 (08:44→20:36)
[2021-12-28] MEDS: LIDOCAINE 5% (LIDODERM) PATCH TD SCH (08:45)
[2021-12-28] MEDS: DICLOFENAC EPOLAMINE 1.3 % PATCH TOP SCH ×2 (08:45→20:34)
[2021-12-28] MEDS: REMEDY PHYTOPLEX Z-GUARD PASTE 113GM TUBE (FROM STOREROOM PRODUCT) TOP SCH ×3 (09:00→20:36)
[2021-12-28] MEDS: ENOXAPARIN 40MG/0.4ML SYRINGE (J1650 PER 10MG) SC SCH (09:01)
[2021-12-28 14:00] VITALS: BP 127/73
[2021-12-28 16:03] LABS: FREE T4 1.37 NG/DL (0.76-1.46); THYROID STIMULATING HORMONE 2.22 uIU/ML (0.358-3.740)
[2021-12-28 20:00] VITALS: BP 138/82
[2021-12-28] MEDS: DULoxetine 20 MG CAP (CYMBALTA) PO SCH (20:34)
[2021-12-28] MEDS: PRAVASTATIN 20 MG TAB PO SCH (20:34)
[2021-12-28] MEDS: SENNA 8.6 MG TAB (SENOKOT) PO SCH (20:35)
[2021-12-28] MEDS: diphenhydrAMINE 25MG CAP PO SCH (21:33)
[2021-12-29] MEDS: LIDOCAINE 5% (LIDODERM) PATCH TD SCH (02:44)
[2021-12-29] MEDS: LEVOTHYROXINE 50MCG TABLET (0.05MG) PO SCH (05:11)
[2021-12-29 06:00] VITALS: BP 124/76
[2021-12-29] MEDS: REMEDY PHYTOPLEX Z-GUARD PASTE 113GM TUBE (FROM STOREROOM PRODUCT) TOP SCH ×3 (09:00→21:00)
[2021-12-29] MEDS: ASPIRIN 81MG ENTERIC TABLET PO SCH (09:19)
[2021-12-29] MEDS: VITAMIN D 1,000 INTERNATIONAL UNITS TABLET PO SCH (09:19)
[2021-12-29] MEDS: NEPHRO-VIT TAB (NEPHROCAPS) PO SCH (09:19)
[2021-12-29] MEDS: ACETAMINOPHEN 500 MG TAB PO SCH ×3 (09:20→21:19)
[2021-12-29] MEDS: PANTOPRAZOLE 40MG TAB (PROTONIX) PO SCH (09:20)
[2021-12-29] MEDS: CYANOCOBALAMIN 500 MCG TAB PO SCH (09:21)
[2021-12-29] MEDS: **hydrALAZINE** 50 MG TAB PO SCH ×3 (09:23→21:19)
[2021-12-29] MEDS: METOPROLOL TART 25 MG TABLET PO SCH ×2 (09:24→21:19)
[2021-12-29] MEDS: DOCUSATE SODIUM 100MG CAPSULE PO SCH ×2 (09:25→21:19)
[2021-12-29] MEDS: ENOXAPARIN 40MG/0.4ML SYRINGE (J1650 PER 10MG) SC SCH (09:25)
[2021-12-29] MEDS: FLUTICASONE PROP 0.05% NASAL SPRAY 16 GM (FLONASE) NARES SCH ×2 (09:26→21:00)
[2021-12-29] MEDS: DICLOFENAC EPOLAMINE 1.3 % PATCH TOP SCH ×2 (09:27→21:18)
[2021-12-29 14:00] VITALS: BP 130/70
[2021-12-29 18:00] VITALS: BP 142/78
[2021-12-29] MEDS: SENNA 8.6 MG TAB (SENOKOT) PO SCH (21:18)
[2021-12-29] MEDS: DULoxetine 20 MG CAP (CYMBALTA) PO SCH (21:18)
[2021-12-29] MEDS: diphenhydrAMINE 25MG CAP PO SCH (21:18)
[2021-12-29] MEDS: PRAVASTATIN 20 MG TAB PO SCH (21:20)
[2021-12-30] MEDS: LEVOTHYROXINE 50MCG TABLET (0.05MG) PO SCH (05:34)
[2021-12-30 06:12] VITALS: BP 128/74
[2021-12-30] MEDS ORDERED: METO1TAB87 PO (07:30)
[2021-12-30] MEDS ORDERED: LISI10TA22 PO (07:30)
[2021-12-30] MEDS ORDERED: SYNT50TA PO (07:30)
[2021-12-30] MEDS ORDERED: AMLO1TAB25 PO (07:30)
[2021-12-30] MEDS ORDERED: HYDR50TA PO (07:30)
[2021-12-30] MEDS ORDERED: CYMB1CAP4 PO (07:30)
[2021-12-30] MEDS ORDERED: PRAV80TA2 PO (07:30)
[2021-12-30] MEDS ORDERED: ASPI81TAEC PO (07:30)
[2021-12-30] MEDS ORDERED: DICL20GE TP (07:34)
[2021-12-30] MEDS: ASPIRIN 81MG ENTERIC TABLET PO SCH (08:38)
[2021-12-30] MEDS: CYANOCOBALAMIN 500 MCG TAB PO SCH (08:38)
[2021-12-30] MEDS: **hydrALAZINE** 50 MG TAB PO SCH (08:38)
[2021-12-30 08:39] VITALS: BP 142/74
[2021-12-30] MEDS: METOPROLOL TART 25 MG TABLET PO SCH (08:39)
[2021-12-30] MEDS: VITAMIN D 1,000 INTERNATIONAL UNITS TABLET PO SCH (08:40)
[2021-12-30] MEDS: NEPHRO-VIT TAB (NEPHROCAPS) PO SCH (08:40)
[2021-12-30] MEDS: PANTOPRAZOLE 40MG TAB (PROTONIX) PO SCH (08:40)
[2021-12-30] MEDS: ACETAMINOPHEN 500 MG TAB PO SCH (08:40)
[2021-12-30] MEDS: DICLOFENAC EPOLAMINE 1.3 % PATCH TOP SCH (08:41)
[2021-12-30] MEDS: ENOXAPARIN 40MG/0.4ML SYRINGE (J1650 PER 10MG) SC SCH (08:41)
[2021-12-30] MEDS: LIDOCAINE 5% (LIDODERM) PATCH TD SCH (08:41)
[2021-12-30] MEDS: DOCUSATE SODIUM 100MG CAPSULE PO SCH (08:41)
[2021-12-30] MEDS: REMEDY PHYTOPLEX Z-GUARD PASTE 113GM TUBE (FROM STOREROOM PRODUCT) TOP SCH (08:42)
[2021-12-30] MEDS: FLUTICASONE PROP 0.05% NASAL SPRAY 16 GM (FLONASE) NARES SCH (08:42)
== END 2021-12-30 13:45 | disposition home or self-care (01) | DRG 56 ==
LOC: M PM&R 17:30
PROVIDERS: ADMIT Physical Medicine & Rehabilitation; ATTEND Physical Medicine & Rehabilitation
PROC: XW033E5 Introduction of Remdesivir Anti-infective into Peripheral Vein, Percutaneous Approach, New Technology Group 5 (ICD-10-PCS; principal; 2021-12-24)
DX: I69.354 Hemiplegia and hemiparesis following cerebral infarction affecting left non-dominant side (principal); U07.1 COVID-19; M17.12 Unilateral primary osteoarthritis, left knee; I69.391 Dysphagia following cerebral infarction; R13.10 Dysphagia, unspecified; I10 Essential (primary) hypertension; E78.5 Hyperlipidemia, unspecified; R26.89 Other abnormalities of gait and mobility; Z87.891 Personal history of nicotine dependence; F32.A Depression, unspecified; F41.9 Anxiety disorder, unspecified; Z96.643 Presence of artificial hip joint, bilateral; Z96.652 Presence of left artificial knee joint; Z96.612 Presence of left artificial shoulder joint; E07.9 Disorder of thyroid, unspecified; Z79.82 Long term (current) use of aspirin; Z79.890 Hormone replacement therapy; Z79.899 Other long term (current) drug therapy

== ENCOUNTER → 2022-01-02 | Outpatient (REF) | payer MEDICARE, OTHER ==
[~2022-01-02] MED LIST changes: +AMLO1TAB25 PO; +ASPI81TAEC PO; +CYMB1CAP4 PO; +DICL20GE TP; +HYDR50TA PO; +LISI10TA22 PO; +LOVE1INJ SC; +REMD100V IV
== END ==
LOC: M LAB REF 21:26
PROVIDERS: ATTEND Student in an Organized Health Care Education/Training Program
DX: R30.0 Dysuria (principal)